=== PATIENT | male | born 1965 | race Caucasian/White ===

== ENCOUNTER 2018-11-13 09:37 | Emergency (ER) | payer BC, OTHER ==
[2018-11-13 10:01] VITALS: BP 156/92; PULSE 57; TEMP 97.4; BMI 33.0
[2018-11-13 10:47] LABS: BASO % 0.7 % (0-2.0); EOS % 2.1 % (0-4.5); HEMOGLOBIN 14.1 GM/dL (11.7-16.9); LYMPH % 24.7 % (8-40); MCH 30.7 pg (25.7-33.7); MCHC 34.3 g/dl (32.0-35.9); MEAN CELL VOLUME 89.4 fl (80-96); MEAN PLT VOLUME 9.1 fl (7.5-11.1); MONO % 10.8 % (3.8-10.2); NEUT % 61.7 % (42.8-82.8); RBC 4.59 M/mm3 (4.00-5.60); RDW 12.8 % (11.9-15.9); WHITE BLOOD COUNT 3.3 K/mm3 (4.0-10.0)
[2018-11-13 10:59] LABS: INR 0.94 (0.83-1.09); PROTHROMBIN TIME (PATIENT) 11.1 SEC (9.7-13.0)
[2018-11-13 11:11] LABS: PLATELET COUNT 176 K/MM3 (134-434)
[2018-11-13 11:15] LABS: ALBUMIN 4.1 g/dl (3.4-5.0); ALK PHOS 66 U/L (45-117); ANION GAP 3 MMOL/L (8-16); BILIRUBIN,TOTAL 0.4 mg/dL (0.2-1); CALCIUM 8.9 mg/dL (8.5-10.1); CHLORIDE 106 mmol/L (98-107); CO2 30 mmol/L (21-32); CREATININE 1.1 mg/dL (0.55-1.3); GLUCOSE,RANDOM 132 mg/dL (74-106); MAGNESIUM 2.4 mg/dL (1.8-2.4); POTASSIUM 4.9 mmol/L (3.5-5.1); SGOT/AST 18 U/L (15-37); SGPT/ALT 43 U/L (13-61); SODIUM 139 mmol/L (136-145)
[2018-11-13] MEDS ORDERED: IBUPROFEN 400 MG TABLET (FP) PO ONE ×2 (11:17→11:49)
--- NOTE | 2018-11-13 11:23 | PDOC ---
History of Present Illness - General Chief Complaint: Chest Pain Stated Complaint: CHEST PAIN Time Seen by Provider: 11/13/18 10:23 History Source: Patient Exam Limitations: No Limitations - History of Present Illness Initial Comments: 11/13/18 11:18 Healthy 53-year-old male with history of high cholesterol presents with localized left chest pain since this morning. She was in his usual state of normal health, awoke from sleep and sat up on his bed then reached over to move something on his nightstand and felt a sudden twinge in his left lower chest. Since then, has had persistent discomfort worse with deep inspiration and any torso movement, did not take anything for pain but spoke to his colleagues and was encouraged to present to the emergency department for evaluation. No associated palpitations/shortness of breath/nausea/lightheadedness, at baseline has no exercise limitations. He did travel earlier this month but denies any signs or symptoms of DVT, no personal or family history of clotting issues. Does not smoke, does not drink excessively, no history of drug use. Has had stress tests in the past that were all negative, most recently 2-3 years ago. Denies any fever/chills/cough. Denies any nausea/vomiting/diarrhea/constipation Past History - Past Medical History Allergies/Adverse Reactions: Allergies Allergy/AdvReac Type Severity Reaction Status Date / Time No Known Allergies Allergy Verified 11/13/18 09:58 Home Medications: Ambulatory Orders Atorvastatin Ca [Lipitor] 10 mg PO HS 11/13/18 COPD: No Hypercholesterolemia: Yes - Immunization History Immunization Up to Date: Yes - Suicide/Smoking/Psychosocial Hx Smoking History: Never smoked Have you smoked in the past 12 months: No Information on smoking cessation initiated: No Hx Alcohol Use: No Drug/Substance Use Hx: No Review of Systems - Review of Systems Constitutional: No: Chills, Fever Respiratory: No: Cough, Shortness of Breath, SOB with Exertion Cardiac (ROS): Yes: See HPI. No: Edema, Palpitations, Syncope ABD/GI: No: Nausea, Vomiting Integumentary: No: Rash Neurological: No: Headache All Other Systems: Reviewed and Negative *Physical Exam - Vital Signs Last Vital Signs Temp Pulse Resp BP Pulse Ox 97.4 F L 57 L 16 156/92 100 11/13/18 09:58 11/13/18 09:58 11/13/18 09:58 11/13/18 09:58 11/13/18 09:58 - Physical Exam Comments: 11/13/18 11:20 Vital signs normal GENERAL: The patient is awake, alert, and fully oriented, in no acute distress. Seated upright in stretcher, smiling, conversant. HEAD: Normal with no signs of trauma. EYES: PERRL, EOMI, sclera anicteric, conjunctiva clear with no pallor. ENT: oropharynx clear without exudates. Moist mucous membranes. NECK: Normal range of motion, supple without lymphadenopathy, JVD, or masses. CHEST: No soft tissue swelling or bruising, no focal bony tenderness or reproducible tenderness. LUNGS: Breath sounds equal, clear to auscultation bilaterally. No wheeze/ crackles. HEART: Regular rate and rhythm, normal S1 and S2 without murmur or rub. ABDOMEN: Soft/nontender/nondistended. BS wnl. No guarding or rebound. No palpable masses. No hepatosplenomegaly. EXTREMITIES: Normal range of motion, no edema. 2+ distal pulses. No cords, erythema, or tenderness. NEUROLOGICAL: Cranial nerves II through XII grossly intact. Normal speech, normal gait. PSYCH: Normal mood, normal affect. SKIN: Warm, Dry, no rashes or lesions noted. Heart Score/ECG Review - History History: Slightly suspicious - Electrocardiogram EKG: Normal - Age Age: 45-65 - Risk Factors Risk Factors Heart Score: Yes Hx Hypercholesterolemia Based on the list above the patient has:: 1-2 risk factors - Troponin Troponin: </= normal limit - Score Heart Score - Total: 2 #1 ECG reviewed & interpreted by me at: 09:43 General ECG Interpretation: Sinus Rhythm, Normal Rate (51), Normal Intervals ( qtc 376), No acute ischemic changes ED Treatment Course - LABORATORY CBC & Chemistry Diagram: 11/13/18 10:26 11/13/18 10:26 - ADDITIONAL ORDERS Additional order review: Laboratory Results 11/13/18 11/13/18 10:26 10:26 PT with INR 11.10 INR 0.94 Sodium 139 Potassium 4.9 Chloride 106 Carbon Dioxide 30 Anion Gap 3 L BUN 17.0 Creatinine 1.1 Est GFR (CKD-EPI)AfAm 88.36 Est GFR (CKD-EPI)NonAf 76.24 Random Glucose 132 H Calcium 8.9 Magnesium 2.4 Total Bilirubin 0.4 AST 18 ALT 43 Alkaline Phosphatase 66 Creatine Kinase 211 Troponin I < 0.02 Total Protein 7.0 Albumin 4.1 11/13/18 10:26 RBC 4.59 MCV 89.4 MCHC 34.3 RDW 12.8 MPV 9.1 Neutrophils % 61.7 Lymphocytes % 24.7 Monocytes % 10.8 H Eosinophils % 2.1 Basophils % 0.7 - RADIOLOGY Radiology Studies Ordered: Category Date Time Status CHEST PA & LAT [RAD] Stat Radiology 11/13/18 10:23 Completed Medical Decision Making - Medical Decision Making 11/13/18 11:21 53-year-old male with high cholesterol presents with left chest pain since this morning in the setting of strain, symptoms are very musculoskeletal in nature without red flags on history or physical exam. Atypical for ACS, recent travel but not consistent with PE. (of note, triage comment regarding leg swelling/redness was written in error) We'll check labs including troponin for reassurance EKG is nonischemic Chest x-ray Trial of NSAIDs Reassess and disposition accordingly 11/13/18 11:45 No leukocytosis, chemistries normal including troponin, chest x-ray clear. Workup reassuring, will discharge with PCP follow-up, understands return criteria. *DC/Admit/Observation/Transfer Diagnosis at time of Disposition: Atypical chest pain Chest wall muscle strain Qualifiers: Encounter type: initial encounter Qualified Code(s): S29.011A - Strain of muscle and tendon of front wall of thorax, initial encounter - Discharge Dispostion Disposition: HOME Condition at time of disposition: Stable - Referrals - Patient Instructions Printed Discharge Instructions: DI for Atypical Chest Pain Additional Instructions: Activity as tolerated. Stay hydrated. Blood tests including a cardiac enzyme, a chest x-ray, and an EKG performed today showed no acute abnormalities. Your symptoms are likely due to a muscle strain in the left chest wall. Ibuprofen 600 mg every 8 hours as needed for pain. The pain should resolve over the next 7-10 days. Continue your medications as previously prescribed by your physician. You should follow up with your primary doctor as soon as possible regarding today's emergency department visit. Return to the emergency department for any new or concerning symptoms, particularly persistent or worsening pain, difficulty breathing, fever/chills, cough. - Post Discharge Activity
--- NOTE | 2018-11-14 10:30 | EKG ---
Test Reason : Blood Pressure : / mmHG Vent. Rate : 051 BPM Atrial Rate : 051 BPM P-R Int : 186 ms QRS Dur : 100 ms QT Int : 408 ms P-R-T Axes : 027 -23 -07 degrees QTc Int : 376 ms SINUS BRADYCARDIA OTHERWISE NORMAL ECG NO PREVIOUS ECGS AVAILABLE Confirmed by JARED BURGOS, CEE ([id number]) on 11/14/2018 10:30:13 AM Referred By: Confirmed By:CEE COLEMAN MD
== END 2018-11-13 12:00 | disposition home or self-care (01) ==
LOC: JER 09:37
DX: R07.89 Other chest pain (principal); S29.011A Strain of muscle and tendon of front wall of thorax, initial encounter; X58.XXXA Exposure to other specified factors, initial encounter; Y93.89 Activity, other specified; Y92.89 Other specified places as the place of occurrence of the external cause; Y99.8 Other external cause status; E78.00 Pure hypercholesterolemia, unspecified
CPT/HCPCS: 36415; 71046-TC-FY; 80053; 82550; 82553; 83735; 84484; 85025; 85610; 93005; 93010; 99283-25